=== PATIENT | female | born 1975 | race Caucasian/White ===

== ENCOUNTER → 2021-04-07 | Outpatient (CLI) | payer OTHER ==
--- NOTE | 2021-04-07 12:48 | Diagnostic Imaging Report ---
INDICATION: Routine screening. COMPARISON: No prior mammograms are available for comparison. This is a baseline study. TECHNIQUE: 2D and 3D bilateral screening mammography was performed with CAD. FINDINGS: Scattered fibroglandular densities are identified bilaterally. There are scattered benign calcifications. No mass or malignant appearing microcalcifications are seen. The axillae are unremarkable. IMPRESSION: No mammographic features suspicious for malignancy are identified. ACR BI-RADS Category 2: Benign findings. Result letter will be mailed to the patient. Note: At least 10% of breast cancer is not imaged by mammography. Dictated by: Dictated on workstation # [id number]
== END ==
LOC: RAD 09:45
PROVIDERS: ATTEND Obstetrics & Gynecology
DX: Z12.31 Encounter for screening mammogram for malignant neoplasm of breast (principal)
CPT/HCPCS: 77063; 77067

== ENCOUNTER 2022-07-09 09:24 | Outpatient (CLI) | payer OTHER ==
[~2022-07-09] VITALS: Ht 162.6 cm; Wt 111.9 kg
[2022-07-13] MEDS ORDERED: LEVO50CA4 PO (14:41)
== END 2022-07-13 14:58 | disposition home or self-care (01) ==
LOC: PREOP 09:24
PROVIDERS: ATTEND Surgery
DX: Z01.818 Encounter for other preprocedural examination (principal)

== ENCOUNTER 2022-07-15 07:52 | Day surgery (SDC) | payer OTHER ==
[~2022-07-15] VITALS: Ht 162.6 cm; Wt 111.9 kg
[~2022-07-15 07:52] MED LIST: LEVO50CA4 PO
[2022-07-15] MEDS ORDERED: LACTATED RINGERS 1,000 ML IV STA (08:06)
[2022-07-15] MEDS ORDERED: HURRICAINE EXT TUBE (BENZOCAINE) XX PRN (08:15)
[2022-07-15 08:29] VITALS: BP 141/80
--- NOTE | 2022-07-15 09:24 | Progress Note-Pre Operative ---
Pre-Operative Progress Note Date of Available H&P: Jul 08, 2022 Date H&P Reviewed: Jul 15, 2022 Time H&P Reviewed: 09:21 History & Physical: H&P Reviewed, Patient Examed, No changes noted Pre-Operative Diagnosis: Gastritis, Melena, epigastric pain SHERRY MILLS DO Jul 15, 2022 09:24
[2022-07-15] MEDS ORDERED: PROPOFOL INJECTION 50 ML IV ONE (10:06)
[2022-07-15] MEDS ORDERED: MIDAZOLAM 2 MG/2 ML (VERSED) VIAL ONE (10:06)
[2022-07-15 10:25] VITALS: BP 122/74
--- NOTE | 2022-07-15 10:29 | Progress Note-Post Operative ---
Post-Operative Progess Note Surgeon (s)/Manager Mental Health (s) Surgeon SHERRY MILLS DO Manager Mental Health: MARIA ANTONIA RamirezII Pre-Operative Diagnosis Gastritis, Melena, epigastric pain Post-Operative Diagnosis Esophagitis Hiatal hernia int hemorrhoids Procedure & Operative Findings Date of Procedure 07/15/22 Procedure Performed/Findings EGD with bx Colonoscopy PROCEDURE NOTE: After informed consent was obtained, the patient was brought to the endoscopy suite, placed in bed in left lateral decubitus position. She was administered IV sedation by the EXTENSION CLERK who then monitored vitals the entire time, heart rate, blood pressure and pulse ox and the scope was inserted down the mouth through the esophagus into the stomach. On the way down, noted some mild esophagitis, took a picture, pushed into the stomach, pushed past the antrum into the duodenum. Duodenum looked good. Pulled back and did a biopsy of antrum, then retroflexed the scope, saw hiatal hernia, took a picture of this and then pulled the scope into the GE junction, took another picture of the hiatal hernia and then did a biopsy of the GE junction. Pushed the scope back into the stomach, suctioned all the air out of the stomach. At this point pulled the scope up the esophagus and out the mouth. Switched camera, switched gloves, went down below and started the colonoscopy. Pushed all the way into about 140 cm to get all the way to cecum, took a picture of the appendiceal orifice, noted the ileocecal valve and then slowly withdrew the scope, insufflating to look circumferentially at the [place] starting in the cecum, up the ascending colon to the hepatic flexure, then down the transverse colon, splenic flexure, into the descending colon, down into the sigmoid and finally into the rectum, retroflexed in the rectal vault, saw some minimal internal hemorrhoids and took a picture of them. The patient tolerated the procedure and she recovered in the endoscopy suite. Recommended for repeat colonoscopy in 10 years Anesthesia Type IV sedation by EXTENSION CLERK Estimated Blood Loss Estimated blood loss (mL): scant Specimens/Packing Specimens Removed antral bx GE jxn bx SHERRY MILLS DO Jul 15, 2022 10:29
[2022-07-15 10:30] VITALS: BP 118/72
--- NOTE | 2022-07-15 10:30 | Endoscopy Discharge Instruct ---
Endo Procedure/Findings Findings 1.: Other Findings (Esophagitis) 2.: Hiatal Hernia (small - sliding) 3.: Internal Hemorrhoids Discharge Instructions - Activity: You might feel a little sleepy until tomorrow. This is due to the medicine you received to relax you. Until tomorrow, you should: NOT drive a car, operate machinery or power tools. NOT drink any alcoholic beverages. NOT make any important decisions or sign importortant papers. Do not return to work until tomorrow, unless otherwise instructed. Resume pr evious activities tomorrow. Diet: Start by taking liquids. If you tolerate liquids, advance to solid food. 1.: EGD in 3 years 2.: Colonscopy in 10 years Notify Physician - If you experience excessive bleeding, unusual abdominal pain, fever, or chest pain, contact your doctor immediately. SHERRY MILLS DO Jul 15, 2022 10:30
[2022-07-15 10:35] VITALS: BP 118/72
[2022-07-15 10:54] VITALS: BP 118/72
--- NOTE | 2022-07-15 11:49 | Anesthesia-General Post-Op ---
MAC Patient Condition Mental Status/LOC: Same as Preop Cardiovascular: Satisfactory Nausea/Vomiting: Absent Respiratory: Satisfactory Pain: Controlled Complications: Absent Post Op Complications Complications None Follow Up Care/Instructions Patient Instructions None needed. Anesthesiology Discharge Order Discharge Order Patient is doing well, no complaints, stable vital signs, no apparent adverse anesthesia problems. No complications reported per nursing. TRU LANE CRNA Jul 15, 2022 11:49
== END 2022-07-15 11:00 | disposition home or self-care (01) ==
LOC: ENDO 07:52
PROVIDERS: ATTEND Surgery
DX: K29.50 Unspecified chronic gastritis without bleeding (principal); K20.90 Esophagitis, unspecified without bleeding; K44.9 Diaphragmatic hernia without obstruction or gangrene; K64.8 Other hemorrhoids; K92.1 Melena; E66.01 Morbid (severe) obesity due to excess calories; Z68.41 Body mass index [BMI] 40.0-44.9, adult
CPT/HCPCS: 84703

== ENCOUNTER → 2022-07-26 | Outpatient (CLI) | payer OTHER ==
--- NOTE | 2022-07-26 09:53 | Diagnostic Imaging Report ---
PROCEDURE: US Gallbladder. TECHNIQUE: Multiple real-time grayscale images were obtained over the right upper quadrant in various projections. INDICATION: Right upper quadrant abdominal pain. Liver parenchyma is homogeneous. There is increased in the echogenicity suggesting fatty infiltration. Portal vein is patent with hepatopetal flow. The gallbladder is clear with no stones or wall thickening. Common duct is not dilated. Pancreas is obscured by bowel gas. Aorta and IVC appear normal. Right kidney measures 10.7 cm length and appears normal. There is no ascites. IMPRESSION: Hepatic steatosis Dictated by: Dictated on workstation # [id number]
== END ==
LOC: RAD 08:00
PROVIDERS: ATTEND Surgery
DX: K76.0 Fatty (change of) liver, not elsewhere classified (principal)
CPT/HCPCS: 76705

== ENCOUNTER → 2022-08-05 | Outpatient (CLI) | payer OTHER ==
[~2022-08-05] MED LIST changes: +CATHETER FLUSH 10 ML SYR IVP PRN
--- NOTE | 2022-08-05 16:35 | Diagnostic Imaging Report ---
RADIOPHARMACEUTICAL: 4.99mCi Tc-99m Choletec IV INDICATION: Epigastric pain COMPARISON: Ultrasound dated 07/26/2022. TECHNIQUE: Anterior dynamic imaging for 45 minutes. Additional 60 minutes of imaging was performed after the patient ingested an 8 ounce can of Ensure Plus. FINDINGS: There is homogenous uptake throughout the liver. The gallbladder is visualized at 20minutes and small bowel at 15minutes. After ingesting an 8 ounce can of Ensure Plus, there is abnormally low gallbladder ejection fraction calculated at 27%. IMPRESSION: Abnormally low gallbladder ejection fraction at 27%, which can be seen with biliary dyskinesia versus chronic acalculous cholecystitis. No evidence of acute cholecystitis or common duct obstruction. Dictated by: Dictated on workstation # [id number]
== END ==
LOC: CARD 11:50
PROVIDERS: ATTEND Surgery
DX: R10.13 Epigastric pain (principal)
CPT/HCPCS: 78227; A9537

== ENCOUNTER 2022-08-12 05:39 | Outpatient (CLI) | payer OTHER ==
[~2022-08-12] VITALS: Ht 162.5 cm; Wt 111.0 kg
[~2022-08-12 05:39] MED LIST changes: -CATHETER FLUSH 10 ML SYR IVP PRN
== END 2022-08-12 11:12 | disposition home or self-care (01) ==
LOC: PREOP 05:39
PROVIDERS: ATTEND Surgery
DX: Z01.818 Encounter for other preprocedural examination (principal)

== ENCOUNTER 2022-08-18 10:36 | Day surgery (SDC) | payer OTHER ==
[~2022-08-18] VITALS: Ht 162.5 cm; Wt 111.9 kg
[2022-08-18] VITALS (13 sets, daily range): BP systolic 129–150; BP diastolic 72–84
[~2022-08-18 10:36] MED LIST changes: +INDOCYANINE GREEN 25 MG (ICG) VIAL IV ONE
[2022-08-18] MEDS ORDERED: LIDOCAINE/EPI 1%-1:100,000 (XYLOCAINE) 10 ML ONE (10:43)
[2022-08-18] MEDS ORDERED: CLINDAMYCIN 600 MG/50 ML IVPB 50 ML IV ONE ×2 (10:45→11:00)
[2022-08-18] MEDS ORDERED: LIDOCAINE/EPI 1%-1:100,000 (XYLOCAINE) 20ML IJ ONE (10:50)
[2022-08-18] MEDS: LACTATED RINGERS 1,000 ML IV PRN ×2 (11:18→13:23)
[2022-08-18] MEDS ORDERED: LIDOCAINE PF 2% 5 ML (XYLOCAINE) VIAL ONE (12:46)
[2022-08-18] MEDS ORDERED: GLYCOPYRROLATE 0.2 MG/ML (ROBINUL) 2 ML VIAL ONE (12:46)
[2022-08-18] MEDS ORDERED: proPOfol 200 MG/20 ML (DIPRIVAN) VIAL IV ONE (12:46)
[2022-08-18] MEDS ORDERED: ONDANSETRON 4 MG/2 ML (SDV) Z0FRAN ONE ×2 (12:46→14:22)
[2022-08-18] MEDS ORDERED: MIDAZOLAM 2 MG/2 ML (VERSED) VIAL ONE (12:46)
[2022-08-18] MEDS ORDERED: ROCURONIUM 10 MG/ML 5 ML SYRINGE IV ONE (12:46)
[2022-08-18] MEDS ORDERED: fentaNYL INJ 100 MCG/2 ML AMP ONE ×2 (12:46→14:04)
--- NOTE | 2022-08-18 12:53 | Progress Note-Pre Operative ---
Pre-Operative Progress Note Date of Available H&P: Aug 10, 2022 Date H&P Reviewed: Aug 18, 2022 Time H&P Reviewed: 12:48 History & Physical: H&P Reviewed, Patient Examed, No changes noted Pre-Operative Diagnosis: Biliary Dyskinesia SHERRY MILLS DO Aug 18, 2022 12:53
[2022-08-18] MEDS ORDERED: NEOSTIGMINE (BLOXIVERZ ) 1 MG/1ML 10 ML VIAL ONE (13:52)
--- NOTE | 2022-08-18 14:03 | Progress Note-Post Operative ---
Post-Operative Progess Note Surgeon (s)/Caustic Plant Worker (s) Surgeon SHERRY MILLS DO Caustic Plant Worker: Rahul Pre-Operative Diagnosis Biliary Dyskinesia Post-Operative Diagnosis same plus adhesions Procedure & Operative Findings Date of Procedure 08/18/22 Procedure Performed/Findings PROCEDURE: Laparoscopic cholecystectomy with ICG intraoperative cholangiogram. COMPLICATIONS: None. PROCEDURE: The patient was taken to the operating suite and was prepped and draped in a sterile fashion. A surgical pause was performed. Just superior to the umbilicus, a 12 mm incision was made. Dissection was taken down to the fascia, which was then scored and grasped with a Homero and the abdomen was then entered. An 0 Vicryl suture was placed in a hvxtik-ja-kxrhs fashion and a Knapp trocar was placed and secured. Pneumoperitoneum was achieved. Three 8mm trochars were placed; one on the right and two on the left almost in line with supra- umbilical trochar. The instruments were placed and the robot was docked to the patient. The gallbladder was then grasped and elevated superiorly while a second grasper pulled infero-laterally. There was a lot of fat around the gallbladder (adhesions) which usually indicates previous gallbladder attacks. The cystic duct and cystic artery were then dissected out. Clip was placed on the distal portion of the cystic duct. The cholangiogram was then performed; using the ICG dye. Able to visualize the cystic duct going into the common duct and saw the common hepatic. There did not appear to be any blockage down towards duodenum. Clips were placed on proximal portion of the cystic duct and on the cystic artery. The duct was then transected, as was the cystic artery. Hook cautery was used to dissect the gallbladder from the gallbladder fossa achieving hemostasis. The gallbladder was placed in an Endobag and removed through the 12 mm trocar site. The abdomen was then reinspected. Copious amounts of irrigation were used to irrigate the abdomen and there were no signs of active bleeding. Hemostasis had been achieved. The 12 mm fascial defect was then closed with 0 Vicryl suture that had been placed in a [id number]-me-cggyn fashion. The abdomen was then desufflated, the trocars were removed. The abdomen was then washed and dried. The skin was then closed using 4-0 Monocryl in a subcuticular fashion. The abdomen was washed and dried and Skin Affix was place over incisions. Patient tolerated the procedure well without any complications and was taken to the recovery room in stable condition. Dr. Kay helped in this case; making incisions, closing incisions, identifying anatomy, taking the gallbladder out. Anesthesia Type GET Estimated Blood Loss Estimated blood loss (mL): scant Specimens/Packing Specimens Removed GB and contents SHERRY MILLS DO Aug 18, 2022 14:03
[2022-08-18] MEDS ORDERED: ACHD5005 PO (14:04)
--- NOTE | 2022-08-18 14:06 | Discharge Inst-Surgical ---
Discharge Inst-Surgical Depart Medication/Instructions New, Converted or Re-Newed RX: Transmitted to Pharmacy Patient Instructions Follow up Appt: Make appointment for 1 week. [phone] Instructions: No lifting greater than 20 pounds. No strenuous activity. May shower in 24 hours, no tub bath or soaking. Use incentive spirometer at home as directed. No Smoking Skin/Wound Care: May remove bandages in am. You need to leave the Dermabond on incision it will fall off on it's own. Symptoms to Report: Appetite Changes, Extremity Discoloration, Numbness/Tingling, Swelling Increased, Bleeding Excessive, Eyesight Changes, Pain Increased, Urine Color Change, Constipation(Persistent), Fever over 101 degree F, Pain/Pressure in chest, Urinating Difficulty, Cough Up/Vomit Blood, Heart Beat Irreg/Pounding, Pain/Pressure in jaw, Cramps in feet or legs, Lightheadedness, Pain/Pressure in shoulder, Diarrhea(Persistent), Memory Changes Suddenly, Questions/Concerns, Weight gain consecutive days, Dizziness/Fainting, Nausea/Vomiting, Shortness of Breath, Weight gain over 2 pounds If questions or concerns contact your physician Or seek help at emergency department. Activity Activity as Tolerated: Yes Activity Instructions: Avoid Stress to Incision Driving Instructions: No Driving/Refer to Dr. Devi Discharge Diet: Avoid Fatty Foods, Low Fat/Low Cholesterol Diet After 24 Hours: Clear Liquid if Nauseous If Any Problems/Questions/Issu: Contact Your Physician, Go to Emergency Room Skin/Wound Care Infection Signs and Symptoms: Increased Redness, Foul Odor of Wound, Increased Drainage, Skin Itchy or Has a Rash, Increased Swelling, Temperature Above 101 F Wound Care Comment: heating pad to shoulder or neck tonight for pain Bathing Instructions: Shower Stitches/[place]/Dermabond Dis: Dermabond Ice Pack: Ice On and Off Site SHERRY MILLS DO Aug 18, 2022 14:06
[2022-08-18] MEDS: ONDANSETRON 4 MG/2 ML (SDV) Z0FRAN IVP PRN ×2 (14:29→14:37)
[2022-08-18] MEDS ORDERED: HYDROmorphone 2 MG/ML VIAL (DILAUDID) IV ONE (14:30)
[2022-08-18] MEDS ORDERED: morphine INJ 10 MG/ML 1ML (SYR OR VIAL) IVP ONE (14:30)
[2022-08-18] MEDS ORDERED: morphine INJ 10 MG/ML 1ML (SYR OR VIAL) ONE (14:31)
--- NOTE | 2022-08-18 14:53 | Anesthesia-General Post-Op ---
General Patient Condition Mental Status/LOC: Same as Preop Cardiovascular: Satisfactory Nausea/Vomiting: Present Respiratory: Satisfactory Pain: Controlled Complications: Absent Post Op Complications Complications None Follow Up Care/Instructions Patient Instructions None needed. Anesthesia/Patient Condition Patient Condition Patient is doing well in PACU, unfortunately C/O pain and nausea. I ordered phenergan which should help her nausea, and some abdominal pain is to be expected. She has stable vital signs currently. No complications reported per nursing. ADIN GALVAN DO Aug 18, 2022 14:53
[2022-08-18] MEDS ORDERED: PROMETHAZINE INJ 25 MG/ML (PHENERGAN) AMP ONE (14:54)
[2022-08-18] MEDS ORDERED: PROMETHAZINE INJ 25 MG/ML (PHENERGAN) AMP IVP ONE (15:00)
[2022-08-18] MEDS ORDERED: HYDROcodone/APAP 5 MG/325 MG (LORTAB) TAB PO ONE (16:15)
== END 2022-08-18 18:00 | disposition home or self-care (01) ==
LOC: SDC 10:36
PROVIDERS: ATTEND Surgery
DX: K82.8 Other specified diseases of gallbladder (principal); K81.1 Chronic cholecystitis; E66.01 Morbid (severe) obesity due to excess calories; Z68.41 Body mass index [BMI] 40.0-44.9, adult
CPT/HCPCS: 84703; 87081; 88304